=== PATIENT | male | born 1985 | race American Indian/Alaskan Native ===

== ENCOUNTER 2019-05-16 10:38 | Emergency (ER) | payer SELFPAY ==
[2019-05-16 10:43] VITALS: BP 149/73
[2019-05-16] MEDS ORDERED: ZOFRAN IV ONE (11:00)
[2019-05-16] MEDS ORDERED: TORADOL IV ONE (11:00)
[2019-05-16] MEDS ORDERED: PEPCID IV ONE (11:00)
[2019-05-16] MEDS ORDERED: NACL 0.9% 1000 ML 1,000 ML IV ONE (11:00)
[2019-05-16] MEDS ORDERED: BENTYL IM ONE (11:00)
[2019-05-16 11:14] LABS: Basophils # (Auto) 0.1 K/mm3 (0.0-0.1); Basophils % (Auto) 0.4 % (0.0-1.8); Hematocrit 42.9 % (35.5-45.6); Hemoglobin 14.7 gm/dl (11.8-15.2); Lymphocytes # (Auto) 1.1 K/mm3 (1.2-5.4); Lymphocytes % (Auto) 6.4 % (13.4-35.0); Mean Corpuscular HGB Conc 34 % (32-34); Mean Corpuscular Volume 95 fl (84-94); Monocytes # (Auto) 0.6 K/mm3 (0.0-0.8); Monocytes % (Auto) 3.7 % (0.0-7.3); Platelet Count 302 K/mm3 (140-440); Red Blood Count 4.53 M/mm3 (3.65-5.03); Red Cell Distribution Width 12.6 % (13.2-15.2)
[2019-05-16 11:35] LABS: Alanine Aminotransferase 16 units/L (7-56); Albumin 4.7 g/dL (3.9-5); BUN/Creatinine Ratio 20; Blood Urea Nitrogen 16 mg/dL (9-20); Calcium 9.7 mg/dL (8.4-10.2); Hemolysis Index 27
--- NOTE | 2019-05-16 12:27 | Cat Scan Report ---
CT ABDOMEN AND PELVIS WITH CONTRAST HISTORY: epigatric, right sided abd pain NVD COMPARISON: None. TECHNIQUE: Axial CT images were obtained through the abdomen and pelvis after 100 cc of Omnipaque 300 intravenously. Sagittal and coronal reformatted images. All CT scans at this location are performed using CT dose reduction for ALARA by means of automated exposure control. FINDINGS: CT ABDOMEN: Lung Bases: Clear. Liver: No significant abnormality. Biliary: No significant abnormality. Spleen: No significant abnormality. Unenlarged. Pancreas: No significant abnormality. Adrenals: No significant abnormality. Kidneys: No significant abnormality. Lymphatics: No lymphadenopathy. Vasculature: No significant abnormality. Bowel/Peritoneum: No significant abnormality. No free air. No free fluid. Normal appendix. CT PELVIS: : No significant abnormality. Osseous Structures: No significant abnormality. Additional Findings: None IMPRESSION: No significant abnormality. Signer Name: Steffen Lehman Jr, MD Signed: 05/16/2019 12:22 PM Workstation Name: [id number]
--- NOTE | 2019-05-16 12:56 | Emergency Department Report ---
ED Abdominal Pain HPI - General Chief Complaint: Nausea/Vomiting/Diarrhea Stated Complaint: N/V Time Seen by Provider: 05/16/19 10:53 Source: patient Mode of arrival: Wheelchair Limitations: No Limitations - History of Present Illness Initial Comments: Patient is a 34-year-old male who is presenting with nausea vomiting diarrhea. Patient states that he'll partially 5 AM this morning he woke up with severe abdominal pain with nausea vomiting diarrhea. Patient states he believes he may have vomited up to 8 times. Blasi times if had some streaks of blood. Patient states diarrhea is nonbloody and watery. Patient states last food was pizza last night. Patient denies fever but he has had some chills. He states he feels a numbness to his face hands. Patient states the abdominal pain is in epigastric and right upper and lower quadrants and is an 8 out of 10 in severity and is crampy. Severity scale (0 -10): 10 - Related Data Previous Rx's Medication Instructions Recorded Last Taken Type Cyclobenzaprine [Flexeril] 10 mg PO TID PRN #12 tablet 02/26/16 Unknown Rx Dicyclomine [Bentyl] 20 mg PO QID #10 tablet 05/16/19 Unknown Rx Famotidine [Pepcid] 20 mg PO BID #20 tablet 05/16/19 Unknown Rx Ondansetron [Zofran Odt] 4 mg PO Q8HR #10 tab.rapdis 05/16/19 Unknown Rx traMADol [Ultram] 50 mg PO Q6HR PRN #12 tablet 05/16/19 Unknown Rx Allergies Allergy/AdvReac Type Severity Reaction Status Date / Time Penicillins Allergy Unknown Verified 05/16/19 10:39 ED Review of Systems ROS: Stated complaint: N/V Other details as noted in HPI Comment: All other systems reviewed and negative ED Past Medical Hx - Past Medical History Previous Medical History?: No - Surgical History Past Surgical History?: Yes Additional Surgical History: acl repair - Social History Smoking Status: Never Smoker Substance Use Type: None - Medications Home Medications: Home Medications Medication Instructions Recorded Confirmed Last Taken Type Cyclobenzaprine [Flexeril] 10 mg PO TID PRN #12 tablet 02/26/16 Unknown Rx Dicyclomine [Bentyl] 20 mg PO QID #10 tablet 05/16/19 Unknown Rx Famotidine [Pepcid] 20 mg PO BID #20 tablet 05/16/19 Unknown Rx Ondansetron [Zofran Odt] 4 mg PO Q8HR #10 tab.rapdis 05/16/19 Unknown Rx traMADol [Ultram] 50 mg PO Q6HR PRN #12 tablet 05/16/19 Unknown Rx ED Physical Exam - General Limitations: No Limitations General appearance: alert, in distress - Head Head exam: Present: atraumatic, normocephalic - Eye Eye exam: Present: normal appearance, PERRL, EOMI - ENT ENT exam: Present: mucous membranes moist - Neck Neck exam: Present: normal inspection - Respiratory Respiratory exam: Present: normal lung sounds bilaterally. Absent: respiratory distress, wheezes, rales, rhonchi - Cardiovascular Cardiovascular Exam: Present: regular rate, normal rhythm. Absent: systolic murmur, diastolic murmur, rubs, gallop - GI/Abdominal GI/Abdominal exam: Present: soft, tenderness (epigastric and right sided), norm al bowel sounds. Absent: distended, guarding, rebound, rigid - Rectal Rectal exam: Present: deferred - Extremities Exam Extremities exam: Present: normal inspection - Back Exam Back exam: Present: normal inspection - Neurological Exam Neurological exam: Present: alert, oriented X3 - Psychiatric Psychiatric exam: Present: normal affect, normal mood - Skin Skin exam: Present: warm, dry, intact, normal color. Absent: rash ED Course Vital Signs 05/16/19 10:42 Temperature 98.0 F Pulse Rate 53 L Respiratory 16 Rate Blood Pressure 149/73 O2 Sat by Pulse 99 Oximetry ED Medical Decision Making - Lab Data Result diagrams: 05/16/19 10:51 05/16/19 10:51 Labs 05/16/19 05/16/19 10:51 10:51 WBC 17.2 H RBC 4.53 Hgb 14.7 Hct 42.9 MCV 95 H MCH 33 H MCHC 34 RDW 12.6 L Plt Count 302 Lymph % (Auto) 6.4 L [place] % (Auto) 3.7 Eos % (Auto) 0.0 Baso % (Auto) 0.4 Lymph # 1.1 L [place] # 0.6 Eos # 0.0 Baso # 0.1 Seg Neutrophils % 89.5 H Seg Neutrophils # 15.4 H Sodium 140 Potassium 3.7 Chloride 98.9 Carbon Dioxide 21 L Anion Gap 24 BUN 16 Creatinine 0.8 Estimated GFR > 60 BUN/Creatinine Ratio 20 Glucose 122 H Calcium 9.7 Total Bilirubin 0.60 AST 23 ALT 16 Alkaline Phosphatase 72 Total Protein 7.9 Albumin 4.7 Albumin/Globulin Ratio 1.5 - Medical Decision Making Patient is a 34-year-old [place] male who is here for abdominal pain nausea vomiting diarrhea. CT shows no acute abdomen now. Patient likely with a viral gastroenteritis or a gastroenteritis that is foodborne. Patient is feeling much improved after hydration and medications that were given to be discharged home. Critical care attestation.: If time is entered above; I have spent that time in minutes in the direct care of this critically ill patient, excluding procedure time. ED Disposition Clinical Impression: Gastroenteritis Disposition: DC-01 TO HOME OR SELFCARE Is pt being admited?: No Does the pt Need Aspirin: No Condition: Stable Instructions: Gastroenteritis (ED) Referrals: PRIMARY CARE, [Primary Care Provider] - 3-5 Days Time of Disposition: 12:56
[2019-05-16 13:10] LABS: Bacteria,Urine 1+ /HPF (Negative); Bilirubin,Urine NEG (Negative); Blood,Urine NEG (Negative); Color,Urine Yellow (Yellow); Mucus,Urine FEW /HPF; Protein,Urine <15 mg/dL mg/dL (Negative); Urobilinogen,Urine < 2.0 mg/dL (<2.0); WBC,Urine < 1.0 /HPF (0.0-6.0)
== END 2019-05-16 13:02 | disposition home or self-care (01) ==
LOC: ED 10:38
DX: K52.9 Noninfective gastroenteritis and colitis, unspecified (principal); Z88.0 Allergy status to penicillin
CPT/HCPCS: 36415; 74177; 80053; 81001; 85025; J0500; J1885; J2405; J7030; Q9967; 96361; 96372; 96374; 96375

== ENCOUNTER 2019-07-10 19:53 | Emergency (ER) | payer SELFPAY ==
[2019-07-10] MEDS ORDERED: SODIUM CHLORIDE 0.9% 1000 ML 1,000 ML IV ONE (20:57)
[2019-07-10] MEDS ORDERED: ONDANSETRON 4 MG ODT TAB PO ONE (20:58)
[2019-07-10] MEDS ORDERED: ONDANSETRON 4 MG ODT TAB ONE (20:59)
--- NOTE | 2019-07-10 20:59 | Event Note ---
ED Screening Note Date of service: 07/10/19 Time: 20:54 ED Screening Note: 34 yo presents with nausea with mid abd pain x today also cc of sob lungs ctab This initial assessment/diagnostic orders/clinical plan/treatment(s) is/are subject to change based on patients health status, clinical progression and re- assessment by fellow clinical providers in the ED. Further treatment and workup at subsequent clinical providers discretion. Patient/guardian urged not to elope from the ED as their condition may be serious if not clinically assessed and managed. Initial orders include: labs, IV fluids, meds zofran in triage acc eval
[2019-07-10 21:24] LABS: Hematocrit 47.1 % (35.5-45.6); Hemoglobin 15.8 gm/dl (11.8-15.2); Mean Corpuscular HGB Conc 34 % (32-34); Mean Corpuscular Volume 96 fl (84-94); Red Blood Count 4.91 M/mm3 (3.65-5.03); Red Cell Distribution Width 12.9 % (13.2-15.2)
[2019-07-10 21:27] LABS: Platelet Count 301 K/mm3 (140-440)
[2019-07-10 21:41] LABS: Alanine Aminotransferase 26 units/L (7-56); Albumin 5.1 g/dL (3.9-5); BUN/Creatinine Ratio 23; Blood Urea Nitrogen 23 mg/dL (9-20); Calcium 10.4 mg/dL (8.4-10.2); Hemolysis Index 18
[2019-07-10 22:54] LABS: Basophils % (Manual) 0 % (0.0-1.8); Eosinophils % (Manual) 0 % (0.0-4.3); Platelet Estimate Consistent w Auto; RBC Morphology Normal; Total Cells Counted 100
[2019-07-10 23:23] LABS: Bilirubin,Urine NEG (Negative); Blood,Urine MOD (Negative); Color,Urine Yellow (Yellow); Mucus,Urine 3+ /HPF; Urobilinogen,Urine < 2.0 mg/dL (<2.0)
[2019-07-10 23:25] LABS: WBC,Urine < 1.0 /HPF (0.0-6.0)
[2019-07-11] MEDS ORDERED: diphenhydrAMINE 50 MG/ML VIAL IV ONE (00:54)
[2019-07-11] MEDS ORDERED: METOCLOPRAMIDE 10 MG/2 ML INJ IV ONE (00:54)
[2019-07-11] MEDS ORDERED: SODIUM CHLORIDE 0.9% 1000 ML 1,000 ML ONE (00:57)
[2019-07-11] MEDS ORDERED: FAMOTIDINE 20 MG/2 ML INJ IV ONE (02:11)
--- NOTE | 2019-07-11 02:12 | Cat Scan Report ---
CT ABDOMEN AND PELVIS WITH CONTRAST INDICATION / CLINICAL INFORMATION: upper abd pain, n,v. TECHNIQUE: Axial CT images were obtained through the abdomen and pelvis after 100 mL Omnipaque [address] scans at this location are performed using CT dose reduction for ALARA by means of automated exposure control. COMPARISON: CT dated 05/16/19 FINDINGS: LOWER CHEST: No significant abnormality. LIVER: No significant abnormality. GALLBLADDER: No significant abnormality. BILE DUCTS: No significant abnormality. PANCREAS: No significant abnormality. SPLEEN: No significant abnormality. ADRENALS: No significant abnormality. RIGHT KIDNEY and URETER: No significant abnormality. LEFT KIDNEY and URETER: No significant abnormality. STOMACH and SMALL BOWEL: No significant abnormality. COLON: No significant abnormality. APPENDIX: No significant abnormality. PERITONEUM: No free fluid. No free air. No fluid collection. LYMPH NODES: No significant adenopathy. AORTA and ARTERIES: No significant abnormality. IVC and VEINS: No significant abnormality. URINARY BLADDER: No significant abnormality. REPRODUCTIVE ORGANS: No significant abnormality. ADDITIONAL FINDINGS: None. SKELETAL SYSTEM: No significant abnormality. IMPRESSION: 1. No significant abnormality. No change. Signer Name: Karen Barrios MD Signed: 07/11/2019 2:08 AM Workstation Name: [id number]
[2019-07-11] MEDS ORDERED: ACETAMINOPHEN 325 MG TAB PO ONE (02:37)
--- NOTE | 2019-07-11 02:40 | Emergency Department Report ---
ED N/V/D HPI - General Chief complaint: Abdominal Pain Stated complaint: NV/ABDOMINAL PAIN Time Seen by Provider: 07/10/19 23:24 Source: patient, old records reviewed Mode of arrival: Ambulatory Limitations: No Limitations - History of Present Illness Initial comments: 34-year-old male with no past medical or surgical history presents to the hospital complaining of upper abdominal pain, nausea, and vomiting after eating nachos and cheese at a [place] restaurant. Patient states he's had similar episodes of nausea and vomiting after a meal that had a lot of cheese. Patient complains of upper cramping abdominal pain greatest constant, with nausea and vomiting since this morning. He denies diarrhea. His unable to eat. He feels like his mouth is dry. Denies fever, recent travel, sick contacts. - Related Data Previous Rx's Medication Instructions Recorded Last Taken Type Cyclobenzaprine [Flexeril] 10 mg PO TID PRN #12 tablet 02/26/16 Unknown Rx Dicyclomine [Bentyl] 20 mg PO QID #10 tablet 07/11/19 Unknown Rx Famotidine [Pepcid] 20 mg PO BID #20 tablet 07/11/19 Unknown Rx Ondansetron [Zofran ODT TAB] 4 mg PO Q8HR #20 tab.rapdis 07/11/19 Unknown Rx traMADol [Ultram 50 MG tab] 50 mg PO Q6HR PRN #12 tablet 07/11/19 Unknown Rx Allergies Allergy/AdvReac Type Severity Reaction Status Date / Time Penicillins Allergy Unknown Verified 05/16/19 10:39 ED Review of Systems ROS: Stated complaint: NV/ABDOMINAL PAIN Other details as noted in HPI Comment: All other systems reviewed and negative ED Past Medical Hx - Past Medical History Previous Medical History?: No - Surgical History Additional Surgical History: acl repair - Social History Smoking Status: Never Smoker Substance Use Type: Marijuana - Medications Home Medications: Home Medications Medication Instructions Recorded Confirmed Last Taken Type Cyclobenzaprine [Flexeril] 10 mg PO TID PRN #12 tablet 02/26/16 Unknown Rx Dicyclomine [Bentyl] 20 mg PO QID #10 tablet 07/11/19 Unknown Rx Famotidine [Pepcid] 20 mg PO BID #20 tablet 07/11/19 Unknown Rx Ondansetron [Zofran ODT TAB] 4 mg PO Q8HR #20 tab.rapdis 07/11/19 Unknown Rx traMADol [Ultram 50 MG tab] 50 mg PO Q6HR PRN #12 tablet 07/11/19 Unknown Rx ED Physical Exam - General Limitations: No Limitations - Other Other exam information: General: No acute distress Head: Atraumatic Eyes: normal appearance ENT: dry mucous membranes Neck: Normal appearance, no midline tenderness Chest: Clear to auscultation bilaterally CV: Regular rate and rhythm Abdomen: Soft, normal bowel sounds, nontender, nondistended, no rebound or guarding Back: Normal inspection Extremity: Normal inspection infection, full range of motion Neuro: Alert O x 3, no facial asymmetry, speech clear, no gross motor sensory deficit Psych: Appropriate behavior Skin: No rash ED Course Vital Signs 07/10/19 07/10/19 07/11/19 20:05 20:54 00:01 Temperature 97.5 F L 97.5 F L 100.8 F H Pulse Rate 57 L 57 L 64 Respiratory 18 20 18 Rate Blood Pressure 143/72 142/73 Blood Pressure 135/64 [Right] O2 Sat by Pulse 100 100 100 Oximetry 07/11/19 04:32 Temperature 99.5 F Pulse Rate 75 Respiratory 18 Rate Blood Pressure Blood Pressure 127/74 [Right] O2 Sat by Pulse 100 Oximetry - Reevaluation(s) Reevaluation #1: 07/11/19 03:27 pt reports feeling "way better". N/v resolved, daylin po intake, pt has received 1L NS and 500ml of 1L of d5ns. Plan to d/c when fluids complete. ED Medical Decision Making - Lab Data Result diagrams: 07/10/19 21:01 07/10/19 21:01 Lab Results 07/10/19 07/10/19 07/10/19 Range/Units 21:01 21:01 21:01 WBC 20.3 H (4.5-11.0) K/mm3 RBC 4.91 (3.65-5.03) M/mm3 Hgb 15.8 H (11.8-15.2) gm/dl Hct 47.1 H (35.5-45.6) % MCV 96 H (84-94) fl MCH 32 (28-32) pg MCHC 34 (32-34) % RDW 12.9 L (13.2-15.2) % Plt Count 301 (140-440) K/mm3 Add Manual Diff Complete Total Counted 100 Seg Neutrophils % Cdl Driver Seg Neuts % (Manual) 92.0 H (40.0-70.0) % Band Neutrophils % 0 % Lymphocytes % (Manual) 7.0 L (13.4-35.0) % Reactive Lymphs % (Man) 0 % Monocytes % (Manual) 1.0 (0.0-7.3) % Eosinophils % (Manual) 0 (0.0-4.3) % Basophils % (Manual) 0 (0.0-1.8) % Metamyelocytes % 0 % Myelocytes % 0 % Promyelocytes % 0 % Blast Cells % 0 % Nucleated RBC % Not Reportable Seg Neutrophils # Man 18.7 H (1.8-7.7) K/mm3 Band Neutrophils # 0.0 K/mm3 Lymphocytes # (Manual) 1.4 (1.2-5.4) K/mm3 Abs React Lymphs (Man) 0.0 K/mm3 Monocytes # (Manual) 0.2 (0.0-0.8) K/mm3 Eosinophils # (Manual) 0.0 (0.0-0.4) K/mm3 Basophils # (Manual) 0.0 (0.0-0.1) K/mm3 Metamyelocytes # 0.0 K/mm3 Myelocytes # 0.0 K/mm3 Promyelocytes # 0.0 K/mm3 Blast Cells # 0.0 K/mm3 WBC Morphology Not Reportable Hypersegmented Neuts Not Reportable Hyposegmented Neuts Not Reportable Hypogranular Neuts Not Reportable Smudge Cells Not Reportable Toxic Granulation Not Reportable Toxic Vacuolation Not Reportable Dohle Bodies Not Reportable Pelger-Huet Anomaly Not Reportable Geovanna Rods Not Reportable Platelet Estimate Consistent w auto Clumped Platelets Not Reportable Plt Clumps, EDTA Not Reportable Large Platelets Not Reportable Giant Platelets Not Reportable Platelet Satelliting Not Reportable Plt Morphology Comment Not Reportable RBC Morphology Normal Dimorphic RBCs Not Reportable Polychromasia Not Reportable Hypochromasia Not Reportable Poikilocytosis Not Reportable Anisocytosis Not Reportable Microcytosis Not Reportable Macrocytosis Not Reportable Spherocytes Not Reportable Pappenheimer Bodies Not Reportable Sickle Cells Not Reportable Target Cells Not Reportable Tear Drop Cells Not Reportable Ovalocytes Not Reportable Helmet Cells Not Reportable Nichole-Shoreline Bodies Not Reportable [place] Rings Not Reportable Cyndi Cells Not Reportable Bite Cells Not Reportable Crenated Cell Not Reportable Elliptocytes Not Reportable Acanthocytes (Spur) Not Reportable Rouleaux Not Reportable Hemoglobin C Crystals Not Reportable Schistocytes Not Reportable Malaria parasites Not Reportable Elijah Bodies Not Reportable Hem Pathologist Commnt No Sodium 138 (137-145) mmol/L Potassium 3.7 (3.6-5.0) mmol/L Chloride 100.9 (98-107) mmol/L Carbon Dioxide 18 L (22-30) mmol/L Anion Gap 23 mmol/L BUN 23 H (9-20) mg/dL Creatinine 1.0 (0.8-1.5) mg/dL Estimated GFR > 60 ml/min BUN/Creatinine Ratio 23 % Glucose 153 H (75-100) mg/dL Calcium 10.4 H (8.4-10.2) mg/dL Total Bilirubin 0.60 (0.1-1.2) mg/dL AST 24 (5-40) units/L ALT 26 (7-56) units/L Alkaline Phosphatase 73 (35-129) units/L Total Protein 8.5 H (6.3-8.2) g/dL Albumin 5.1 H (3.9-5) g/dL Albumin/Globulin Ratio 1.5 % Lipase 9 L (13-60) units/L Urine Color (Yellow) Urine Turbidity (Clear) Urine pH (5.0-7.0) Ur Specific [place] (1.003-1.030) Urine Protein (Negative) mg/dL Urine Glucose (UA) (Negative) mg/dL Urine Ketones (Negative) mg/dL Urine Blood (Negative) Urine Nitrite (Negative) Urine Bilirubin (Negative) Urine Urobilinogen (<2.0) mg/dL Ur Leukocyte Esterase (Negative) Urine WBC (Auto) (0.0-6.0) /HPF Urine RBC (Auto) (0.0-6.0) /HPF Urine Mucus /HPF 07/10/19 Range/Units 22:31 WBC (4.5-11.0) K/mm3 RBC (3.65-5.03) M/mm3 Hgb (11.8-15.2) gm/dl Hct (35.5-45.6) % MCV (84-94) fl MCH (28-32) pg MCHC (32-34) % RDW (13.2-15.2) % Plt Count (140-440) K/mm3 Add Manual Diff Total Counted Seg Neutrophils % Seg Neuts % (Manual) (40.0-70.0) % Band Neutrophils % % Lymphocytes % (Manual) (13.4-35.0) % Reactive Lymphs % (Man) % Monocytes % (Manual) (0.0-7.3) % Eosinophils % (Manual) (0.0-4.3) % Basophils % (Manual) (0.0-1.8) % Metamyelocytes % % Myelocytes % % Promyelocytes % % Blast Cells % % Nucleated RBC % Seg Neutrophils # Man (1.8-7.7) K/mm3 Band Neutrophils # K/mm3 Lymphocytes # (Manual) (1.2-5.4) K/mm3 Abs React Lymphs (Man) K/mm3 Monocytes # (Manual) (0.0-0.8) K/mm3 Eosinophils # (Manual) (0.0-0.4) K/mm3 Basophils # (Manual) (0.0-0.1) K/mm3 Metamyelocytes # K/mm3 Myelocytes # K/mm3 Promyelocytes # K/mm3 Blast Cells # K/mm3 WBC Morphology Hypersegmented Neuts Hyposegmented Neuts Hypogranular Neuts Smudge Cells Toxic Granulation Toxic Vacuolation Dohle Bodies Pelger-Huet Anomaly Geovanna Rods Platelet Estimate Clumped Platelets Plt Clumps, EDTA Large Platelets Giant Platelets Platelet Satelliting Plt Morphology Comment RBC Morphology Dimorphic RBCs Polychromasia Hypochromasia Poikilocytosis Anisocytosis Microcytosis Macrocytosis Spherocytes Pappenheimer Bodies Sickle Cells Target Cells Tear Drop Cells Ovalocytes Helmet Cells Nichole-Shoreline Bodies [place] Rings Cyndi Cells Bite Cells Crenated Cell Elliptocytes Acanthocytes (Spur) Rouleaux Hemoglobin C Crystals Schistocytes Malaria parasites Elijah Bodies Hem Pathologist Commnt Sodium (137-145) mmol/L Potassium (3.6-5.0) mmol/L Chloride (98-107) mmol/L Carbon Dioxide (22-30) mmol/L Anion Gap mmol/L BUN (9-20) mg/dL Creatinine (0.8-1.5) mg/dL Estimated GFR ml/min BUN/Creatinine Ratio % Glucose (75-100) mg/dL Calcium (8.4-10.2) mg/dL Total Bilirubin (0.1-1.2) mg/dL AST (5-40) units/L ALT (7-56) units/L Alkaline Phosphatase (35-129) units/L Total Protein (6.3-8.2) g/dL Albumin (3.9-5) g/dL Albumin/Globulin Ratio % Lipase (13-60) units/L Urine Color Yellow (Yellow) Urine Turbidity Clear (Clear) Urine pH 5.0 (5.0-7.0) Ur Specific [place] 1.036 H (1.003-1.030) Urine Protein 100 mg/dl (Negative) mg/dL Urine Glucose (UA) 50 (Negative) mg/dL Urine Ketones 80 (Negative) mg/dL Urine Blood Mod (Negative) Urine Nitrite Neg (Negative) Urine Bilirubin Neg (Negative) Urine Urobilinogen < 2.0 (<2.0) mg/dL Ur Leukocyte Esterase Neg (Negative) Urine WBC (Auto) < 1.0 (0.0-6.0) /HPF Urine RBC (Auto) 127.0 (0.0-6.0) /HPF Urine Mucus 3+ /HPF - Radiology Data Radiology results: report reviewed CT ABDOMEN AND PELVIS WITH CONTRAST INDICATION / CLINICAL INFORMATION: upper abd pain, n,v. TECHNIQUE: Axial CT images were obtained through the abdomen and pelvis after 100 mL Omnipaque [address] scans at this location are performed using CT dose reduction for ALARA by means of automated exposure control. COMPARISON: CT dated 05/16/19 FINDINGS: LOWER CHEST: No significant abnormality. LIVER: No significant abnormality. GALLBLADDER: No significant abnormality. BILE DUCTS: No significant abnormality. PANCREAS: No significant abnormality. SPLEEN: No significant abnormality. ADRENALS: No significant abnormality. RIGHT KIDNEY and URETER: No significant abnormality. LEFT KIDNEY and URETER: No significant abnormality. STOMACH and SMALL BOWEL: No significant abnormality. COLON: No significant abnormality. APPENDIX: No significant abnormality. PERITONEUM: No free fluid. No free air. No fluid collection. LYMPH NODES: No significant adenopathy. AORTA and ARTERIES: No significant abnormality. IVC and VEINS: No significant abnormality. URINARY BLADDER: No significant abnormality. REPRODUCTIVE ORGANS: No significant abnormality. ADDITIONAL FINDINGS: None. SKELETAL SYSTEM: No significant abnormality. IMPRESSION: 1. No significant abnormality. No change. - Medical Decision Making She presents to the hospital with epigastric discomfort associated nausea, and vomiting. Patient significant leukocytosis. CT abdomen and pelvic unremarka ble. Patient is a low-grade fever. Differential still includes adverse reaction versus viral gastroenteritis given his low-grade temperature patient be treated symptomatically and follow-up encouraged. pt tx with zofran, reglan, benadryl, ns, d5ns, pepcid, tylenol - Differential Diagnosis gastroenteritis, food poisoning, pancreatitis, cholecystitis, appendicitis Critical Care Time: No Critical care attestation.: If time is entered above; I have spent that time in minutes in the direct care of this critically ill patient, excluding procedure time. ED Disposition Clinical Impression: Acute gastroenteritis, Dehydration Disposition: DC- TO HOME OR SELFCARE Is pt being admited?: No Does the pt Need Aspirin: No Condition: Stable Instructions: Gastroenteritis (ED) Additional Instructions: Take the medication as prescribed. Follow-up with your doctor or doctor/clinic provided. Return if symptoms worsen as indicated by your discharge instructions. Prescriptions: Dicyclomine [Bentyl] 20 mg PO QID #10 tablet Famotidine [Pepcid] 20 mg PO BID #20 tablet traMADol [Ultram 50 MG tab] 50 mg PO Q6HR PRN #12 tablet PRN Reason: Pain Ondansetron [Zofran ODT TAB] 4 mg PO Q8HR #20 tab.rapdis Referrals: PRIMARY CARE, [Primary Care Provider] - 3-5 Days [facility] [Provider Group] - 3-5 Days Time of Disposition: 04:30
[2019-07-11] MEDS ORDERED: D5W/0.9% NACL 1,000 ML IV SCH (03:00)
[2019-07-11 04:33] VITALS: BP 127/74
== END 2019-07-11 04:33 | disposition home or self-care (01) ==
LOC: ED 19:53
DX: K52.9 Noninfective gastroenteritis and colitis, unspecified (principal); E86.0 Dehydration; F12.10 Cannabis abuse, uncomplicated; Z88.0 Allergy status to penicillin; Z79.899 Other long term (current) drug therapy
CPT/HCPCS: 36415; 74177; 80053; 81001; 83690; 85007; 85025; 96361; 96374; 96375; 99284; J1200; J2765; J7030; J7042; Q9967; Q0162

== ENCOUNTER 2021-01-04 18:03 | Emergency (ER) | payer SELFPAY | END 2021-01-04 20:00 | disposition left against medical advice (07) | LOC: ED 18:03 | DX: R11.10 Vomiting, unspecified (principal); Z53.21 Procedure and treatment not carried out due to patient leaving prior to being seen by health care provider ==

== ENCOUNTER 2021-01-06 08:53 | Emergency (ER) | payer SELFPAY ==
[2021-01-06 10:02] VITALS: BP 165/111
[2021-01-06] MEDS ORDERED: ONDANSETRON 4 MG ODT TAB PO ONE (10:24)
[2021-01-06] MEDS ORDERED: FAMOTIDINE 20 MG TAB PO ONE (10:24)
--- NOTE | 2021-01-06 10:25 | Emergency Department Report ---
ED General Adult HPI - General Chief complaint: Nausea/Vomiting/Diarrhea Stated complaint: CANT EAT/LOST WEIGHT/DEHYDRATED Time Seen by Provider: 01/06/21 10:11 Source: patient Mode of arrival: Ambulatory Limitations: No Limitations - History of Present Illness Initial comments: 35-year-old male who denies any significant past history presents to the ER today with complaints of nausea, vomiting, abdominal pain, and not been able to eat. Patient states that has been having symptoms off and on for the past 2 years. Typically when his symptoms flares up he would go to the emergency room. Patient states that typically when he goes to the emergency room they told him likely has a stomach virus, they gave him medication to help his symptoms and i t would get better. He states that he has been given referrals to a "specialist" but he has never followed up. He has had CT scans of his abdominal area but they typically tell him that there is nothing abnormal seen on the CTs. Patient states that this feels like his symptoms is becoming more frequent over the past couple months, his symptoms flared up again few days ago. In addition to the nausea, vomiting, and the left upper quadrant abdominal pain/epigastric pain he also gets generally weak, and dizzy and he feels like he is dehydrated. He states his last bowel movement was sometime before this past Wednesday. He denies any hematemesis, coffee-ground emesis, hematochezia melena. He denies any fever, chills, chest pain, shortness of breath or any other symptoms at this time. Patient admits that he used to be a heavy drinker but he stopped drinking in 07/2020. He denies any illicit drug use. He denies any abdominal surgeries. MD Complaint: Abdominal pain, nausea, vomiting, generalized weakness, dizziness -: Gradual, year(s) (2) - Related Data Previous Rx's Medication Instructions Recorded Last Taken Type Cyclobenzaprine [Flexeril] 10 mg PO TID PRN #12 tablet 02/26/16 Unknown Rx Dicyclomine [Bentyl] 20 mg PO QID #10 tablet 07/11/19 Unknown Rx Famotidine [Pepcid] 20 mg PO BID #20 tablet 01/06/21 Unknown Rx Ondansetron [Zofran ODT TAB] 4 mg PO Q8HR #20 tab.rapdis 01/06/21 Unknown Rx Pantoprazole [Protonix] 40 mg PO QDAY #30 tablet 01/06/21 Unknown Rx traMADoL [Ultram 50 MG tab] 50 mg PO Q6HR PRN #12 tablet 01/06/21 Unknown Rx Allergies Allergy/AdvReac Type Severity Reaction Status Date / Time Penicillins Allergy Unknown Verified 05/16/19 10:39 ED Review of Systems ROS: Stated complaint: CANT EAT/LOST WEIGHT/DEHYDRATED Other details as noted in HPI Comment: All other systems reviewed and negative Constitutional: weakness Gastrointestinal: abdominal pain, nausea, vomiting, other (decrease appetite, weight loss) Neurological: weakness ED Past Medical Hx - Past Medical History Previous Medical History?: No - Surgical History Past Surgical History?: No Additional Surgical History: acl repair - Social History Smoking Status: Never Smoker Substance Use Type: None - Medications Home Medications: Home Medications Medication Instructions Recorded Confirmed Last Taken Type Cyclobenzaprine [Flexeril] 10 mg PO TID PRN #12 tablet 02/26/16 Unknown Rx Dicyclomine [Bentyl] 20 mg PO QID #10 tablet 07/11/19 Unknown Rx Famotidine [Pepcid] 20 mg PO BID #20 tablet 01/06/21 Unknown Rx Ondansetron [Zofran ODT TAB] 4 mg PO Q8HR #20 tab.rapdis 01/06/21 Unknown Rx Pantoprazole [Protonix] 40 mg PO QDAY #30 tablet 01/06/21 Unknown Rx traMADoL [Ultram 50 MG tab] 50 mg PO Q6HR PRN #12 tablet 01/06/21 Unknown Rx ED Physical Exam - General Limitations: No Limitations General appearance: alert, in no apparent distress - Head Head exam: Present: atraumatic, normocephalic, normal inspection - Eye Eye exam: Present: normal appearance, PERRL, EOMI Pupils: Present: normal accommodation - ENT ENT exam: Present: normal exam, mucous membranes moist - Neck Neck exam: Present: normal inspection, full ROM - Respiratory Respiratory exam: Present: normal lung sounds bilaterally. Absent: respiratory distress, wheezes, rales, rhonchi - Cardiovascular Cardiovascular Exam: Present: regular rate, normal rhythm, normal heart sounds - GI/Abdominal GI/Abdominal exam: Present: soft. Absent: distended, tenderness, guarding - Neurological Exam Neurological exam: Present: alert, oriented X3, CN II-XII intact, normal gait - Psychiatric Psychiatric exam: Present: normal affect, normal mood - Skin Skin exam: Present: intact ED Course Vital Signs 01/06/21 09:57 Temperature 99.4 F Pulse Rate 78 Respiratory 18 Rate Blood Pressure 165/111 O2 Sat by Pulse 100 Oximetry ED Medical Decision Making - Lab Data Result diagrams: 01/06/21 11:10 01/06/21 11:10 - Radiology Data Radiology results: report reviewed Patient: TANIKA EAST MR# : [id number] : 1985 Acct:[id number] Age/Sex: 35 / M ADM Date: 01/06/21 Loc: ED Attending Dr: Ordering Physician: EMELY MACARIO Date of Service: 01/06/21 Procedure(s): XR abdomen 1V ap Accession Number(s): [id number] cc: EMELY MACARIO Fluoro Time In Minutes: ABDOMEN 1 VIEW(S) INDICATION / CLINICAL INFORMATION: upper abd pain/constipation/vomiting. COMPARISON: None available. FINDINGS: TUBES / LINES: None. BOWEL GAS PATTERN/EXTRALUMINAL GAS: No significant abnormality. No pneumatosis or secondary signs of free air. ADDITIONAL FINDINGS: No significant additional findings. IMPRESSION: 1. No acute findings. Signer Name: Drew Arriaga MD Signed: 01/06/2021 10:51 AM Workstation Name: [email or web address] Transcribed By: BALCK Dictated By: Drew Arriaga MD Electronically Authenticated By: Drew Arriaga MD Signed Date/Time: 01/06/21 1051 DD/ 1051 TD/TT: - Medical Decision Making 1227: Repeat BP 164/84 Labs/KUB reviewed -- nothing overly concerning at this time on labs/imaging and his abdominal exam is unremarkable and benign; in particular, there is no discomfort at McBurney's point and there is no pulsatile mass. Based on his history, it sounds like his symptoms are chronic and his exam, diagnostic testing and current condition do not suggest acute appendicitis, bowel obstruction, acute cholecystitis, bowel perforation, major GI bleed, severe diverticulitis, abdominal aortic aneurysm, mesenteric ischemia, volvulus, sepsis or other significant pathology to warrant further testing, continued ED treatment, admission or surgical evaluation at this point. The patient does not have uncontrollable pain, intractable vomiting, he is well appearing and not toxic and observed drink water in ED and tolerating it. He does not appear significantly dehydrated. His repeat BP 164/84 (he denies hx HTN), and remaining VS stable. Discussed labs and imaging results with patient. Informed him that is important he follows up with GI for further evaluation of his symptoms as he may need an endoscopy and colonoscopy. Patient expressed understanding of instructions and agree with plan. The patient's condition is stable and appropriate for discharge from the emergency department. The patient will pursue further outpatient evaluation with the primary care physician or other designated or consulting physician as indicated in the discharge instructions. Critical care attestation.: If time is entered above; I have spent that time in minutes in the direct care of this critically ill patient, excluding procedure time. ED Disposition Clinical Impression: Chronic upper abdominal pain, Nausea and vomiting Disposition: TO HOME OR SELFCARE Is pt being admited?: No Does the pt Need Aspirin: No Condition: Stable Instructions: Nausea and Vomiting, Adult, [id number], Abdominal Pain, Adult, [id number], Chronic Pain, Adult Additional Instructions: Take the pepcid, protonix and zofran as prescribed. I recommend that you continue to drink fluids, like water, Gatorade, vitamin water to maintain hydration. You can also do soup or broth or bland foods (see bland diet sheet). Most importantly it is important that you follow-up with a GI specialist for further assessment and evaluation of your symptoms as you may need an upper endoscopy and colonoscopy. It is important that you complete the stop drinking. Also it is important that you follow-up with a primary care doctor. Return to the ER if your symptoms changes or worsens. Prescriptions: Famotidine [Pepcid] 20 mg PO BID #20 tablet Pantoprazole [Protonix] 40 mg PO QDAY #30 tablet traMADoL [Ultram 50 MG tab] 50 mg PO Q6HR PRN #12 tablet PRN Reason: Pain Ondansetron [Zofran ODT TAB] 4 mg PO Q8HR #20 tab.rapdis Referrals: MAURA DIMAS MD [Staff Physician] - 3-5 Days [facility] [Provider Group] - 3-5 Days Forms: Work/School Release Form(ED) Time of Disposition: 12:14
--- NOTE | 2021-01-06 10:56 | XRay Report ---
ABDOMEN 1 VIEW(S) INDICATION / CLINICAL INFORMATION: upper abd pain/constipation/vomiting. COMPARISON: None available. FINDINGS: TUBES / LINES: None. BOWEL GAS PATTERN/EXTRALUMINAL GAS: No significant abnormality. No pneumatosis or secondary signs of free air. ADDITIONAL FINDINGS: No significant additional findings. IMPRESSION: 1. No acute findings. Signer Name: Drew Arriaga MD Signed: 01/06/2021 10:51 AM Workstation Name: [id number]
[2021-01-06 11:27] LABS: Hematocrit 47.9 % (35.5-45.6); Hemoglobin 16.3 gm/dl (11.8-15.2); Mean Corpuscular HGB Conc 34 % (32-34); Mean Corpuscular Volume 94 fl (84-94); Platelet Count 306 K/mm3 (140-440); Red Blood Count 5.07 M/mm3 (3.65-5.03); Red Cell Distribution Width 12.4 % (13.2-15.2)
[2021-01-06 11:29] LABS: Bilirubin,Urine NEG (Negative); Blood,Urine MOD (Negative); Color,Urine Amber (Yellow); Urobilinogen,Urine < 2.0 mg/dL (<2.0)
[2021-01-06 11:30] LABS: Mucus,Urine 3+ /HPF
[2021-01-06 11:48] LABS: Alanine Aminotransferase 65 units/L (7-56); Albumin 5.3 g/dL (3.9-5); BUN/Creatinine Ratio 24; Blood Urea Nitrogen 31 mg/dL (9-20); Calcium 9.9 mg/dL (8.4-10.2); Hemolysis Index 8
== END 2021-01-06 13:55 | disposition home or self-care (01) ==
LOC: ED 08:53
DX: R10.10 Upper abdominal pain, unspecified (principal); G89.29 Other chronic pain; R11.2 Nausea with vomiting, unspecified; Z79.899 Other long term (current) drug therapy; Z88.0 Allergy status to penicillin; Z98.890 Other specified postprocedural states
CPT/HCPCS: 36415; 74018; 80053; 81001; 83690; 83735; 85027; Q0162